=== PATIENT | male | born 1995 | race Caucasian/White ===

== ENCOUNTER 2023-11-28 12:06 | Emergency (ER) | payer SELFPAY ==
[2023-11-28 12:18] VITALS: BP 120/80; PULSE 79; TEMP 36.8; O2SAT 98; BMI 23.2
--- NOTE | 2023-11-28 12:22 | XR_ITS ---
The [address] [address] Patient Name: BRITTA THURSTON MRN: [id number] date: 1995 Sex: M Assigned Patient Location: ER Current Patient Location: ER Accession/Order Number: [id number] Exam Date: 11/28/2023 12:39 Report Date: 11/28/2023 13:03 At the request of: CALVIN MROALES Procedure: XR elbow RT min 3V PROCEDURE: XR shoulder RT min 2V, XR elbow RT min 3V HISTORY: pain COMPARISON: None. FINDINGS: BONES:No fracture, acute abnormality, or significant arthropathy. SOFT TISSUES:No visible soft tissue swelling. EFFUSION:None visible. OTHER: Negative. XR/XR elbow RT min 3V IMPRESSION: 1. No abnormal or suspicious findings. Electronically authenticated by: TASHA YU Date: 11/28/2023 13:03
--- NOTE | 2023-11-28 12:22 | XR_ITS ---
The [address] [address] Patient Name: BRITTA THURSTON MRN: [id number] date: 1995 Sex: M Assigned Patient Location: ER Current Patient Location: ER Accession/Order Number: [id number] Exam Date: 11/28/2023 12:39 Report Date: 11/28/2023 13:03 At the request of: CALVIN MORALES Procedure: XR shoulder RT min 2V PROCEDURE: XR shoulder RT min 2V, XR elbow RT min 3V HISTORY: pain COMPARISON: None. FINDINGS: BONES:No fracture, acute abnormality, or significant arthropathy. SOFT TISSUES:No visible soft tissue swelling. EFFUSION:None visible. OTHER: Negative. XR/XR shoulder RT min 2V IMPRESSION: 1. No abnormal or suspicious findings. Electronically authenticated by: TASHA YU Date: 11/28/2023 13:03
--- NOTE | 2023-11-28 13:19 | ED_ITS ---
HPI HPI - Extremity Injury (Upper) General Chief Complaint: Extremity Injury, Upper Stated Complaint: UPPER EXTREMITY PAIN Time Seen by Provider: 11/28/23 13:09 Source: patient Mode of arrival: walk-in Limitations: no limitations History of Present Illness HPI narrative: Patient is a 28-year-old male who presents to the emergency department for the evaluation of pain in the right bicep and shoulder radiating to the right elbow for the last 3 days. He states the pain began after using his right arm to throw Frisbee. There has been no bulging, swelling, color change or numbness or tingling to the right extremity. No medications taken prior to arrival. Related Data Previous Rx's ?Medication ?Instructions ?Recorded ketorolac 10 mg tablet 10 mg PO TID PRN pain #10 tabs 11/28/23 methocarbamol 750 mg tablet 750 mg PO TID PRN pain #20 tabs 11/28/23 methylprednisolone 4 mg tablets in See Rx Instructions .Route 11/28/23 a dose pack (Medrol (Tyler)) .COMPLEX #21 ea Allergies Allergy/AdvReac Type Severity Reaction Status Date / Time No Known Drug Allergies Allergy Verified 11/28/23 12:18 Opioid HPI Opioid Management Most Recent Pain and Opioid Data: Last Pain Scale 6 11/28/23 13:13 Review of Systems ROS Constitutional Denies: fever or chills Ears, nose, mouth, and throat Denies: throat pain or nasal congestion Respiratory Denies: shortness of breath Gastrointestinal Denies: nausea or vomiting Musculoskeletal Reports: extremity pain and limited range of motion; Denies: back pain or neck pain Integumentary/Breast Denies: rash Neurological Denies: numbness in extremities or weakness in extremities Hematologic/Lymphatic Denies: easy bruising or easy bleeding [facility] Social History Little interest or pleasure in doing things: not at all Feeling down, depressed, or hopeless: not at all Exam Narrative Exam Narrative: Gen.: Awake, alert, in no distress Head: Normocephalic, atraumatic ENT: Moist mucous membranes Respiratory: No respiratory distress Extremities: Pain with range of motion at the right elbow and shoulder, no bulging or shortening noted of the bicep. Pain with range of motion of the right upper extremity. 2+ right radial pulse Psych: Normal mood and affect Neuro: No focal neuro deficit Skin: Warm, dry, intact Constitutional Vital Signs, click to edit/add: Last Vital Signs Temp 98.2 F 11/28/23 12:18 Pulse 86 11/28/23 13:23 Resp 18 11/28/23 13:23 BP 122/88 11/28/23 13:23 Pulse Ox 100 11/28/23 13:23 O2 Del Method Room Air 11/28/23 12:18 Course Vital Signs Vital signs: Vital Signs Temperature 98.2 F 11/28/23 12:18 Pulse Rate 79 11/28/23 12:18 Respiratory Rate 18 11/28/23 12:18 Blood Pressure 120/80 11/28/23 12:18 Pulse Oximetry 98 11/28/23 12:18 Oxygen Delivery Method Room Air 11/28/23 12:18 Temperature 98.2 F 11/28/23 12:18 Pulse Rate 86 11/28/23 13:23 Respiratory Rate 18 11/28/23 13:23 Blood Pressure 122/88 11/28/23 13:23 Pulse Oximetry 100 11/28/23 13:23 Oxygen Delivery Method Room Air 11/28/23 12:18 MDM - Extremity Injury (Upper) MDM Narrative Medical decision making narrative: X-rays of the right shoulder and elbow were performed in triage with no evidence of bony abnormality, there is no clinical exam finding concerning for biceps tendon rupture, likely a tendinitis or muscle strain. Patient placed on medications for home, NSAID, Medrol Dosepak, muscle relaxant. Rest, ice, gentle stretching. Work note provided. Return to the ER if symptoms change or worsen. SUPERVISED APC VISIT, PHYSICIAN ATTESTATION: Based on the medical record the care appears appropriate. ? Medical Records Attestation: I reviewed the patient's medical records. Discharge Plan Discharge Chief Complaint: Extremity Injury, Upper Clinical Impression: Pain in right arm Patient Disposition: Home, Self-Care Time of Disposition Decision: 13:17 Condition: Good Prescriptions / Home Meds: New ketorolac 10 mg tablet 10 mg PO TID PRN (Reason: pain) Qty: 10 0RF methocarbamol 750 mg tablet 750 mg PO TID PRN (Reason: pain) Qty: 20 0RF methylprednisolone [Medrol (Tyler)] 4 mg tablets,dose pack See Rx Instructions .ROUTE .COMPLEX Qty: 21 0RF Rx Instructions: Taper as directed Print Language: Kinyarwanda Instructions: Arm Pain (ED) Referrals: Physician,Non-Staff, MD [Primary Care Provider] - 1 week Discharge Date/Time: 11/28/23 13:24
[2023-11-28 13:23] VITALS: BP 122/88; PULSE 86; O2SAT 100
== END 2023-11-28 13:24 | disposition home or self-care (01) ==
PROVIDERS: Emergency Provider Emergency Medicine
DX: M79.601 Pain in right arm (principal)
CPT/HCPCS: 73030; 73080; 99283